=== PATIENT | male | born 1965 | race African-American/Black ===

== ENCOUNTER 2019-05-01 00:50 | Emergency (ER) | payer OTHER ==
[~2019-05-01] VITALS: Ht 175.3 cm; Wt 69.2 kg
[2019-05-01 00:52] VITALS: BP 89/67
[2019-05-01] MEDS ORDERED: HYDROcodone/APAP 5/325 TABLET PO ONE (02:00)
[2019-05-01 02:03] LABS: BASOPHILS # (AUTO) 0.03 x10^3/uL (0-0.1); BASOPHILS % (AUTO) 1 % (0-1); EOSINOPHILS # (AUTO) 0.11 x10^3/uL (0-0.4); EOSINOPHILS % (AUTO) 2 % (1-7); LYMPHOCYTES # (AUTO) 1.57 x10^3/uL (1-3.4); LYMPHOCYTES % (AUTO) 25 % (22-44); MD NO; MEAN CORPUSCULAR HEMOGLOBIN 32.8 pg (27.5-34.5); MEAN CORPUSCULAR HGB CONC 33.7 g/dL (33.2-36.2); MEAN CORPUSCULAR VOLUME 97.5 fL (81-97); MEAN PLATELET VOLUME 7.3 fL (7.4-10.4); MONOCYTES # (AUTO) 0.45 x10^3/uL (0.2-0.8); MONOCYTES % (AUTO) 7 % (2-9); NEUTROPHILS # (AUTO) 4.25 x10^3/uL (1.8-6.8); NEUTROPHILS % (AUTO) 66 % (42-75); PLATELET COUNT 299 x10^3/uL (130-400); RED BLOOD COUNT 5.03 x10^6/uL (4.38-5.82); RED CELL DISTRIBUTION WIDTH 13.2 % (9.4-14.8)
[2019-05-01 02:05] LABS: ALBUMIN 3.8 g/dL (3.4-5.0); ANION GAP 8 mmol/L (5-15); C-REACTIVE PROTEIN, QUANT 0.23 mg/dL (0.02-0.49); CALCIUM 9.2 mg/dL (8.5-10.1); CHLORIDE 104 mmol/L (98-107); CREATININE 1.05 mg/dL (0.7-1.3)
[2019-05-01] MEDS ORDERED: HYDROcodone/APAP 5/325 TABLET ONE (02:05)
--- NOTE | 2019-05-01 02:12 | NUR ---
PT UP AND MOVING AROUND ROOM WITHOUT DIFFICULTY, MEDICATED FOR PAIN
[2019-05-01 02:40] LABS: HCT (SEDRATE) 49.1 % (39.2-51.8)
== END 2019-05-01 02:56 | disposition home or self-care (01) ==
LOC: ED 02:14
DX: M16.12 Unilateral primary osteoarthritis, left hip (principal); F17.200 Nicotine dependence, unspecified, uncomplicated
CPT/HCPCS: 36415; 80048; 82040; 85025; 85651; 86140; 99284